=== PATIENT | female | born 1995 | race Caucasian/White ===

== ENCOUNTER 2021-06-09 15:57 | Emergency (ER) | payer BC ==
[~2021-06-09 15:57] MED LIST: COLACE 100MG C100 MG PO; IBUPROFEN600 MG PO; LORTAB 5-325 M1 EACH PO; PRENATAL TABLE1 EAC1 PO
[2021-06-09 18:33] LABS: HEMOGLOBIN 14.4 gm/dl (12.3-15.3); RED BLOOD COUNT 4.77 M/UL (4.00-5.10); WHITE BLOOD COUNT 16.1 K/UL (4.5-11.0)
[2021-06-09 18:57] LABS: BUN/CREATININE RATIO 19 (0-10)
[2021-06-10] MEDS ORDERED: BACTRIM DS TAB1 EACH PO (00:57)
== END 2021-06-10 01:05 | disposition home or self-care (01) ==
LOC: ER1 15:57
PROVIDERS: Physician Assistant
DX: O86.29 Other urinary tract infection following delivery (principal); O90.89 Other complications of the puerperium, not elsewhere classified; R07.89 Other chest pain
CPT/HCPCS: 71045; 80053; 81001; 82550; 82553; 83874; 83880; 84484; 85025; 85379; 85610; 85730; 87086; 99285

== ENCOUNTER → 2021-07-28 | Outpatient (CLI) | payer BC ==
[~2021-07-28] MED LIST changes: +BACTRIM DS TAB1 EACH PO
== END ==
LOC: ECHO 09:00
DX: R07.9 Chest pain, unspecified (principal)
CPT/HCPCS: ECHO; 93306

== ENCOUNTER → 2021-09-02 | Outpatient (CLI) | payer BC | LOC: EXRD 09:00 | DX: R74.8 Abnormal levels of other serum enzymes (principal); R11.0 Nausea; K80.20 Calculus of gallbladder without cholecystitis without obstruction | CPT/HCPCS: 76705 ==